=== PATIENT | female | born 1955 | race Caucasian/White ===

== ENCOUNTER → 2023-05-11 14:21 | Outpatient (REF) | payer MEDICARE, OTHER, SELFPAY | LOC: RCS 14:21 | PROVIDERS: ATTENDING PHYSICIAN Orthopaedic Surgery; FAMILY PHYSICIAN Physician Assistant Medical | DX: Z01.818 Encounter for other preprocedural examination (principal) | CPT/HCPCS: 93005 ==

== ENCOUNTER → 2023-07-20 11:57 | Outpatient (REF) | payer MEDICARE, OTHER, SELFPAY | LOC: HWRAD 11:57 | PROVIDERS: ATTENDING PHYSICIAN Internal Medicine Rheumatology; FAMILY PHYSICIAN Physician Assistant Medical | DX: M06.09 Rheumatoid arthritis without rheumatoid factor, multiple sites (principal); M79.672 Pain in left foot | CPT/HCPCS: 73630 ==

== ENCOUNTER → 2024-08-28 09:43 | Outpatient (REF) | payer MEDICARE, OTHER, SELFPAY | LOC: REG 09:43 | PROVIDERS: ATTENDING PHYSICIAN Internal Medicine Rheumatology; FAMILY PHYSICIAN Physician Assistant Medical | DX: M06.09 Rheumatoid arthritis without rheumatoid factor, multiple sites (principal); M16.11 Unilateral primary osteoarthritis, right hip; M25.511 Pain in right shoulder; M25.512 Pain in left shoulder | CPT/HCPCS: 73030 ==

== ENCOUNTER → 2025-01-05 10:48 | Outpatient (REF) | payer MEDICARE, OTHER, SELFPAY | LOC: HWRAD 10:48 | PROVIDERS: ATTENDING PHYSICIAN Internal Medicine Rheumatology; FAMILY PHYSICIAN Physician Assistant Medical | DX: M81.0 Age-related osteoporosis without current pathological fracture (principal); Z13.820 Encounter for screening for osteoporosis | CPT/HCPCS: 77080 ==